=== PATIENT | male | born 1980 | race Caucasian/White ===

== ENCOUNTER 2020-08-05 00:41 | Emergency (ER) | payer SELFPAY ==
[2020-08-05 01:15] VITALS: TEMP 98.3; BMI 40.6
[2020-08-05] MEDS ORDERED: FAMOTIDINE 20 MG/50 ML IVPB 20 MG/50 ML MG IVPB ONE (03:24)
[2020-08-05] MEDS ORDERED: PANTOPRAZOLE SODIUM 40 MG VIAL IVPUSH ONE (03:24)
[2020-08-05] MEDS ORDERED: PANTOPRAZOLE SODIUM 40 MG VIAL ONE (03:53)
[2020-08-05 04:07] LABS: BASO % 0.5 % (0-2.0); EOS % 0.5 % (0-4.5); HEMATOCRIT 46.1 % (35.4-49); HEMOGLOBIN 16.3 GM/dL (11.7-16.9); LYMPH % 37.6 % (8-40); MCH 32.6 pg (25.7-33.7); MCHC 35.4 g/dl (32.0-35.9); MEAN CELL VOLUME 92.1 fl (80-96); MEAN PLT VOLUME 8.8 fl (7.5-11.1); MONO % 6.2 % (3.8-10.2); NEUT % 55.2 % (42.8-82.8); PLATELET COUNT 137 K/MM3 (134-434); RBC 5.01 M/mm3 (4.00-5.60); RDW 13.7 % (11.9-15.9); WHITE BLOOD COUNT 7.9 K/mm3 (4.0-10.0)
[2020-08-05 04:41] LABS: CHLORIDE 101 mmol/L (98-107); POTASSIUM 3.8 mmol/L (3.5-5.1); SODIUM 139 mmol/L (136-145)
[2020-08-05 04:43] LABS: CALCIUM 9.6 mg/dL (8.5-10.1)
[2020-08-05 04:44] LABS: ALBUMIN 4.5 g/dl (3.4-5.0); ANION GAP 12 MMOL/L (8-16); BLOOD UREA NITROGEN 3.9 mg/dL (7-18); CO2 26 mmol/L (21-32); GLUCOSE,RANDOM 97 mg/dL (74-106); LIPASE 133 U/L (73-393)
[2020-08-05 04:46] LABS: SGPT/ALT 75 U/L (13-61)
[2020-08-05 04:47] LABS: CREATININE 0.6 mg/dL (0.55-1.3); LDH 214 U/L (87-246); SGOT/AST 117 U/L (15-37)
[2020-08-05 04:48] LABS: BILIRUBIN,TOTAL 0.5 mg/dL (0.2-1); TOT PROT 8.2 g/dl (6.4-8.2)
[2020-08-05 04:49] LABS: ALK PHOS 117 U/L (45-117)
[2020-08-05] MEDS ORDERED: LACTATED RINGERS SOLUTION 1000 ML INFUS.BAG IV ONE (05:39)
[2020-08-05] MEDS ORDERED: SUCRALFATE 1 GM TABLET (FP) ONE (06:22)
[2020-08-05] MEDS ORDERED: SUCRALFATE 1 GM TABLET (FP) PO ONE (06:26)
[2020-08-05 07:29] VITALS: BP 126/71; PULSE 88
[2020-08-05 08:14] LABS: URINE APPEARANCE CLEAR; URINE BILIRUBIN NEGATIVE (NEGATIVE); URINE COLOR YELLOW; URINE GLUCOSE (UA) NEGATIVE (NEGATIVE); URINE KETONE NEGATIVE (NEGATIVE); URINE LEUK ESTERASE NEGATIVE (NEGATIVE); URINE NITRITE NEGATIVE (NEGATIVE); URINE PROTEIN NEGATIVE (NEGATIVE); URINE UROBILINOGEN 0.2 mg/dL (0.2-1.0)
== END 2020-08-05 08:17 | disposition home or self-care (01) ==
LOC: JER 00:41
PROC: 3E033GC Introduction of Other Therapeutic Substance into Peripheral Vein, Percutaneous Approach (ICD-10-PCS; principal; 2020-08-05)
PROC: 3E033GC Introduction of Other Therapeutic Substance into Peripheral Vein, Percutaneous Approach (ICD-10-PCS; 2020-08-05)
DX: K70.30 Alcoholic cirrhosis of liver without ascites (principal); F10.920 Alcohol use, unspecified with intoxication, uncomplicated
CPT/HCPCS: 36415; 70450-TC; 71260-TC; 72125-TC; 74177-TC; 80053; 80307; 81003; 82550; 82553; 83615; 83690; 83735; 84484; 85025; 86850; 86900; 86901; 87040; 87086; 93005; 93010; 99285-25